=== PATIENT | female | born 1945 | race Caucasian/White ===

== ENCOUNTER 2020-05-08 11:48 | Outpatient (CLI) | payer MEDICARE ==
[2020-05-08 13:12] LABS: CALCIUM, SERUM 9.2 mg/dL (8.5-10.1); CREATININE 0.8 mg/dL (0.6-1.3); POTASSIUM 4.6 mmol/L (3.5-5.1)
== END 2020-05-08 23:59 | disposition home or self-care (01) ==
LOC: LAB 11:48
PROVIDERS: ATTEND Internal Medicine Interventional Cardiology
DX: I10 Essential (primary) hypertension (principal); R06.09 Other forms of dyspnea
CPT/HCPCS: 36415; 80048-TC

== ENCOUNTER 2023-03-12 00:50 | Emergency (ER) | payer MEDICARE, OTHER ==
[~2023-03-12] VITALS: Ht 157.5 cm; Wt 74.4 kg
[~2023-03-12 00:50] MED LIST: CLOP75TA15 PO; DILT-2 PO; METF-440 PO; SIMV-46 PO
[2023-03-12 01:17] LABS: BASOPHILS % (AUTO) 0.4 % (0.0-2.0); EOSINOPHILS # (AUTO) 0.3 K/uL (0.0-0.7); EOSINOPHILS % (AUTO) 4.7 % (0.0-6.0); HEMATOCRIT 43 % (33-45); HEMOGLOBIN 14.4 g/dL (11.5-14.8); LYMPHOCYTES # (AUTO) 2.7 K/uL (0.8-4.8); LYMPHOCYTES % (AUTO) 49.7 % (20.0-44.0); MEAN CORPUSCULAR HEMOGLOBIN 31 PG (26.0-33.0); MEAN CORPUSCULAR HGB CONC 34 g/dl (31.0-36.0); MEAN CORPUSCULAR VOLUME 92 fL (82-100); MONOCYTES # (AUTO) 0.5 K/uL (0.1-1.30); MONOCYTES % (AUTO) 9.2 % (2.0-12.0); PLATELET COUNT (AUTO) 219 K/uL (150-450); RED BLOOD CELL COUNT(AUTO) 4.64 MIL/uL (4.0-5.2); WHITE BLOOD COUNT (AUTO) 5.5 K/uL (4.3-11.0)
[2023-03-12 01:26] LABS: CALCIUM, SERUM 9.4 mg/dL (8.5-10.1); CARBON DIOXIDE 29 mmol/L (21-32); CHLORIDE 99 mmol/L (98-107); CREATININE 0.8 mg/dL (0.6-1.3); GLUCOSE 132 mg/dL (74-106); SODIUM SERUM 135 mmol/L (136-145); UREA NITROGEN, BLOOD 17 mg/dL (7-18)
[2023-03-12] MEDS ORDERED: METOPROLOL TARTRATE INJ 5 MG/5 ML AMPUL ONE ×3 (01:39→02:16)
[2023-03-12 01:41] LABS: THYROID STIMULATING HORMONE 4.176 uIU/mL (0.358-3.74)
[2023-03-12 01:59] LABS: MAGNESIUM 2.1 mg/dL (1.8-2.4)
[2023-03-12] MEDS ORDERED: METOPROLOL TARTRATE INJ 5 MG/5 ML AMPUL IV ONE ×3 (02:00→02:30)
[2023-03-12] MEDS ORDERED: ADENOSINE 6 MG/2 ML VIAL IVP ONE (02:30)
[2023-03-12] MEDS ORDERED: ADENOSINE 6 MG/2 ML VIAL ONE (02:35)
[2023-03-12 03:39] VITALS: BP 139/72; TEMP 98; O2SAT 98
== END 2023-03-12 03:40 | disposition home or self-care (01) ==
LOC: ER 00:54
DX: I47.10 Supraventricular tachycardia, unspecified (principal); R00.2 Palpitations; I10 Essential (primary) hypertension; Z88.8 Allergy status to other drugs, medicaments and biological substances
CPT/HCPCS: 99285; 96374; 71045; 96375; 93005 ×2; 96376; 85025; 80048; 83735; 85378; 36415; 84439; 84443; 84484 ×2; 83880; J0153; J3490 ×3